=== PATIENT | male | born 1930 | race Caucasian/White ===

== ENCOUNTER 2017-03-11 08:22 | Day surgery (SDC) | payer MEDICARE, BC ==
[~2017-03-11 08:22] MED LIST: Lactated Ringers 1,000 ML IV SCH; Lidocaine 1% 4 ML ONE; Lidocaine 1%/Sod Bicarbonate in NS 8.4% 1 ML Syringe IV PRN; Propofol 200 MG/20 ML SDV ONE; Sodium Chloride 0.9% 10 ML Syringe FLUSH PRN
--- NOTE | 2017-03-11 08:58 | PCM.PREANE ---
Preanesthetic Assessment - Procedure Proposed Procedure: Colonscopy - Anesthesia/Transfusion/Family Hx Anesthesia History: Prior Anesthesia Without Reaction Family History of Anesthesia Reaction: No Transfusion History: No Prior Transfusion(s) - Review of Systems General: No Symptoms Pulmonary: Shortness of Breath Cardiovascular: No Symptoms (pacemaker w/o defibrillator ) Gastrointestinal: No symptoms Neurological: No Symptoms Other: Reports: None - Physical Assessment NPO Status Date: 03/10/17 NPO Status Time: 19:00 Pulse: 67 O2 Sat by Pulse Oximetry: 96 Respiratory Rate: 16 Blood Pressure: 136/84 Temperature: 36.4 C Height: 1.73 m Weight: 107.048 kg ASA Class: 3 Mental Status: Alert & Oriented x3 Airway Class: Mallampati = 1 Dentition: Reports: Missing Tooth/Teeth (missing teeth bilateral lower teeth ) Thyro-Mental Finger Breadths: 3 Mouth Opening Finger Breadths: 5 ROM/Head Extension: Full Lungs: Clear to auscultation, Normal respiratory effort Cardiovascular: Regular Rate, Regular Rhythm - Allergies Allergies/Adverse Reactions: Allergies Allergy/AdvReac Type Severity Reaction Status Date / Time ALTAGRACIA Inhibitors Allergy Other Verified 03/08/17 11:16 atorvastatin [From Lipitor] Allergy Other Verified 03/08/17 11:13 Sulfa (Sulfonamide Allergy Other Verified 03/08/17 11:15 Antibiotics) - Blood Blood Available: No - Anesthesia Plan Beta Robert: Metoprolol Med Last Dose Date: 03/10/17 Med Last Dose Time: 18:30 - Acknowledgements Anesthesia Type Planned: MAC Pt an Appropriate Candidate for the Planned Anesthesia: Yes Alternatives and Risks of Anesthesia Discussed w Pt/Guardian: Yes Pt/Guardian Understands and Agrees with Anesthesia Plan: Yes PreAnesthesia Questionnaire Cardiovascular History: Reports: High Cholesterol, Hypertension, Pacemaker, Other (See Below) Other Cardiovascular History: CHF, CAD, DVT, ischemic cardiomyopathy, valvular disease, CABG Respiratory History: Reports: SOB, Other (See Below) Other Respiratory History: CROUCH, PE Genitourinary History: Reports: Chronic Renal Insuffiency Musculoskeletal History: Reports: Other (See Below) Other Musculoskeletal History: degenerative joint disease, left shoulder impingement Neurological History: Reports: None Other Neuro History: cerebral vascular disease Endocrine/Metabolic History: Reports: Diabetes, Type II (history of elevated Blood sugars) Oncologic (Cancer) History: Reports: Prostate Dermatologic History: Reports: Eczema, Other (See Below) Other Dermatologic History: actinic keratosis, skin lesions - Past Surgical History HEENT Surgical History: Reports: Cataract Surgery Other HEENT Surgeries/Procedures: [place] RESERVATION, tinnitus - SUBSTANCE USE Smoking Status *Q: Former Smoker Days Per Week of Alcohol Use: 2 Number of Drinks Per Day: 2 Total Drinks Per Week: 4 Recreational Drug Use History: No - HOME MEDS Home Medications: Home Meds Fluticasone Furoate [Flonase Sensimist] 03/08/17 [History] Furosemide [Furosemide] 40 mg PO BID 03/08/17 [History] Loratadine [Claritin] 10 mg PO DAILY 03/08/17 [History] Losartan [Cozaar] 25 mg PO DAILY 03/08/17 [History] Metoprolol Tartrate [Lopressor] 25 mg PO DAILY 03/08/17 [History] Pravastatin Sodium [Pravastatin (Pravachol)] 40 mg PO DAILY 03/08/17 [History] Ranitidine [Zantac] 150 mg PO DAILY 03/08/17 [History] Tamsulosin [Flomax] 0.4 mg PO DAILY 03/08/17 [History] Vit B12/Pyridoxine/Thiamine [Apatate] 03/08/17 [History] Warfarin [Coumadin] 7.5 mg PO DAILY 03/08/17 [History] - CURRENT (IN HOUSE) MEDS Current Meds: Current Medications Lactated Ringer's (Ringers, Lactated) 1,000 mls @ 125 mls/hr IV ASDIRECTED NAM Stop: 03/11/17 23:59 Lidocaine/Sodium Bicarbonate (Buffered Lidocaine 1% In Ns 8.4%) 0.25 ml IV ONETIME PRN PRN Reason: Prior to IV Start Stop: 03/11/17 23:59 Sodium Chloride (Saline Flush) 10 ml FLUSH ASDIRECTED PRN PRN Reason: Keep Vein Open Stop: 03/11/17 23:59 Discontinued Medications Lidocaine HCl (Xylocaine-Mpf 1%) Confirm Administered Dose 4 mls @ as directed .ROUTE .STK-MED ONE Stop: 03/11/17 08:17 Propofol (Diprivan 20 Ml) Confirm Administered Dose 200 mg .ROUTE .STK-MED ONE Stop: 03/11/17 08:16
[2017-03-11] MEDS ORDERED: Ketamine 500 mg/10 ML MDV ONE (09:51)
--- NOTE | 2017-03-11 09:53 | PCM.OPNOTE ---
- General Post-Op/Procedure Note Date of Surgery/Procedure: 03/11/17 Operative Procedure(s): colonoscopy Findings: poor prep Pre Op Diagnosis: rectal bleeding Post-Op Diagnosis: Same Primary Surgeon: Harshad Rudolph EBL in mLs: 0 Complications: None Condition: Good
[2017-03-11 10:01] VITALS: BP 153/74
--- NOTE | 2017-03-11 10:06 | PCM48HPAN ---
Post Anesthesia Note - EVALUATION WITHIN 48HRS OF ANESTHETIC Vital Signs in Normal Range: Yes Patient Participated in Evaluation: Yes Respiratory Function Stable: Yes Airway Patent: Yes Cardiovascular Function Stable: Yes Hydration Status Stable: Yes Pain Control Satisfactory: Yes Nausea and Vomiting Control Satisfactory: Yes Mental Status Recovered: Yes
--- NOTE | 2017-03-12 09:49 | OR ---
DATE OF OPERATION: 03/11/2017 SURGEON: Harshad Rudolph MD PREOPERATIVE DIAGNOSIS: Rectal bleeding. POSTOPERATIVE DIAGNOSIS: Rectal bleeding. OPERATION PERFORMED: Colonoscopy to the rectum. FINDINGS: Incomplete prep. The scope was actually advanced beyond the rectum and transverse colon and there is stool throughout the colon. The patient did not take the prep. PLAN: Plan is to cancel the procedure and bring the patient back to the clinic. ANESTHESIA: ESTIMATED BLOOD LOSS: DESCRIPTION OF PROCEDURE: MMODAL /[id number]
== END 2017-03-11 10:40 | disposition home or self-care (01) ==
LOC: JD.SDS 08:22
PROVIDERS: ATTEND Surgery
DX: K62.5 Hemorrhage of anus and rectum (principal); I25.10 Atherosclerotic heart disease of native coronary artery without angina pectoris; I11.0 Hypertensive heart disease with heart failure; I50.9 Heart failure, unspecified; E78.00 Pure hypercholesterolemia, unspecified; I25.5 Ischemic cardiomyopathy; E11.9 Type 2 diabetes mellitus without complications; Z53.8 Procedure and treatment not carried out for other reasons; Z95.1 Presence of aortocoronary bypass graft; Z87.891 Personal history of nicotine dependence; Z79.01 Long term (current) use of anticoagulants; Z79.899 Other long term (current) drug therapy; Z98.890 Other specified postprocedural states
CPT/HCPCS: 36415; 45378; 85610; J7120; 00810; J2704

== ENCOUNTER 2017-04-01 07:47 | Day surgery (SDC) | payer MEDICARE, BC ==
[~2017-04-01 07:47] MED LIST changes: -Lidocaine 1% 4 ML ONE; -Propofol 200 MG/20 ML SDV ONE
--- NOTE | 2017-04-01 08:08 | PCM.PREANE ---
Preanesthetic Assessment - Anesthesia/Transfusion/Family Hx Anesthesia History: Prior Anesthesia Without Reaction Family History of Anesthesia Reaction: No Transfusion History: No Prior Transfusion(s) - Review of Systems General: No Symptoms Pulmonary: Shortness of Breath (had bypass and is usual) Cardiovascular: No Symptoms Gastrointestinal: No symptoms Neurological: No Symptoms Other: Reports: Easy Bruising - Physical Assessment NPO Status Date: 03/31/17 NPO Status Time: 19:00 Pulse: 74 O2 Sat by Pulse Oximetry: 94 Respiratory Rate: 16 Blood Pressure: 120/68 Temperature: 97.2 F Height: 5 ft 8 in Weight: 107.048 kg ASA Class: 3 Mental Status: Alert & Oriented x3 Airway Class: Mallampati = 1 Dentition: Reports: Normal Dentition Thyro-Mental Finger Breadths: 3 Mouth Opening Finger Breadths: 3 ROM/Head Extension: Full Lungs: Clear to auscultation, Normal respiratory effort Cardiovascular: Regular Rate, Regular Rhythm - Lab Values: EF 25-30 from 2013- ischemic cardiomyopathy - Imaging/EKG Impressions: labs- 03/14/17 BUN 16 Cr 1.2 lytes WNL 04/01/17 PT 11.4 INR 1.04 - Allergies Allergies/Adverse Reactions: Allergies Allergy/AdvReac Type Severity Reaction Status Date / Time ALTAGRACIA Inhibitors Allergy Other Verified 03/08/17 11:16 atorvastatin [From Lipitor] Allergy Other Verified 03/08/17 11:13 Sulfa (Sulfonamide Allergy Other Verified 03/08/17 11:15 Antibiotics) - Blood Blood Available: No - Anesthesia Plan Beta Robert: Metoprolol Med Last Dose Date: 03/31/17 Med Last Dose Time: 20:00 - Acknowledgements Anesthesia Type Planned: MAC Pt an Appropriate Candidate for the Planned Anesthesia: Yes Alternatives and Risks of Anesthesia Discussed w Pt/Guardian: Yes Pt/Guardian Understands and Agrees with Anesthesia Plan: Yes PreAnesthesia Questionnaire Cardiovascular History: Reports: High Cholesterol, Hypertension, Pacemaker, Other (See Below) Other Cardiovascular History: CHF, CAD, DVT, ischemic cardiomyopathy, valvular disease, CABG Respiratory History: Reports: SOB, Other (See Below) Other Respiratory History: CROUCH, PE Genitourinary History: Reports: Chronic Renal Insuffiency Musculoskeletal History: Reports: Other (See Below) Other Musculoskeletal History: degenerative joint disease, left shoulder impingement Neurological History: Reports: None Other Neuro History: cerebral vascular disease Endocrine/Metabolic History: Reports: Diabetes, Type II (history of elevated Blood sugars) Oncologic (Cancer) History: Reports: Prostate Dermatologic History: Reports: Eczema, Other (See Below) Other Dermatologic History: actinic keratosis, skin lesions - Past Surgical History HEENT Surgical History: Reports: Cataract Surgery Other HEENT Surgeries/Procedures: GRAYLING, tinnitus Cardiovascular Surgical History: Reports: Coronary Artery Bypass, Pacer - SUBSTANCE USE Smoking Status *Q: Former Smoker Tobacco Use Within Last Twelve Months: No Second Hand Smoke Exposure: No Days Per Week of Alcohol Use: 2 Number of Drinks Per Day: 2 Total Drinks Per Week: 4 Recreational Drug Use History: No - HOME MEDS Home Medications: Home Meds Fluticasone Furoate [Flonase Sensimist] 1 spray NASBOTH DAILY 03/08/17 [History] Furosemide [Furosemide] 40 mg PO BID 03/08/17 [History] Loratadine [Claritin] 10 mg PO DAILY 03/08/17 [History] Losartan [Cozaar] 25 mg PO DAILY 03/08/17 [History] Metoprolol Tartrate [Lopressor] 25 mg PO DAILY 03/08/17 [History] Pravastatin Sodium [Pravastatin (Pravachol)] 40 mg PO DAILY 03/08/17 [History] Ranitidine [Zantac] 150 mg PO DAILY 03/08/17 [History] Tamsulosin [Flomax] 0.4 mg PO DAILY 03/08/17 [History] Vit B12/Pyridoxine/Thiamine [Apatate] 120 ml PO DAILY 03/08/17 [History] Warfarin [Coumadin] 7.5 mg PO DAILY 03/08/17 [History] - CURRENT (IN HOUSE) MEDS Current Meds: Current Medications Lactated Ringer's (Ringers, Lactated) 1,000 mls @ 125 mls/hr IV ASDIRECTED NAM Stop: 04/01/17 23:00 Lidocaine/Sodium Bicarbonate (Buffered Lidocaine 1% In Ns 8.4%) 0.25 ml IV ONETIME PRN PRN Reason: Prior to IV Start Stop: 04/01/17 18:00 Sodium Chloride (Saline Flush) 10 ml FLUSH ASDIRECTED PRN PRN Reason: Keep Vein Open Stop: 04/01/17 18:00
[2017-04-01] MEDS ORDERED: Lidocaine 1% 4 ML ONE (08:30)
[2017-04-01] MEDS ORDERED: Propofol 200 MG/20 ML SDV ONE (08:30)
--- NOTE | 2017-04-01 09:17 | PCM.OPNOTE ---
- General Post-Op/Procedure Note Date of Surgery/Procedure: 04/01/17 Operative Procedure(s): colonoscopy to cecum with bx Findings: radiation proctitis diverticulosis sigmoid Pre Op Diagnosis: rectal bleeding Post-Op Diagnosis: rectal bleeding Anesthesia Technique: MAC Primary Surgeon: Harshad Rudolph EBL in mLs: 0 Complications: None Condition: Good
[2017-04-01 09:20] VITALS: BP 120/54
--- NOTE | 2017-04-01 13:55 | OR ---
DATE OF OPERATION: 04/01/2017 SURGEON: Harshad Rudolph MD PREOPERATIVE DIAGNOSIS: Rectal bleeding. POSTOPERATIVE DIAGNOSIS: Rectal bleeding. OPERATION PERFORMED: Colonoscopy to cecum with biopsy. 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 There are no angiodysplasias, neoplasias, large tumor masses, ulcerations, or notable hemorrhoids. ANESTHESIA: Procedure done under IV sedation. DESCRIPTION OF PROCEDURE: The patient was taken to the endoscopy room, placed in a supine position, connected to monitoring equipment, given IV sedation, and placed in left lateral position. The perianal area was inspected and was normal. Rectal exam showed good sphincter tone. A video Olympus colonoscope was introduced into the rectum and threaded up without problem to the cecum, where the cecal anatomy was clearly seen, showing the appendicular orifice, ileocecal valve. The prep was good throughout the colon. [place] Cleansing Score grade B. There were some, around the sigmoid area, particulate matter present, which could not be completely aspirated. The scope was then slowly withdrawn showing the cecum, ascending colon, transverse colon, descending colon, sigmoid colon, and rectum. Retroflex view was done. 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 The patient tolerated the procedure and was sent to recovery room in a stable condition. He will be followed up with Dr. Jigna Deras. ESTIMATED BLOOD LOSS: MMODAL /[id number]
== END 2017-04-01 09:55 | disposition home or self-care (01) ==
LOC: JD.SDS 07:47
PROVIDERS: ATTEND Surgery
PROC: 0DBP8ZX Excision of Rectum, Via Natural or Artificial Opening Endoscopic, Diagnostic (ICD-10-PCS; principal; 2017-04-01)
DX: D12.8 Benign neoplasm of rectum (principal); K57.30 Diverticulosis of large intestine without perforation or abscess without bleeding; K62.7 Radiation proctitis; I50.9 Heart failure, unspecified; I13.0 Hypertensive heart and chronic kidney disease with heart failure and stage 1 through stage 4 chronic kidney disease, or unspecified chronic kidney disease; N18.9 Chronic kidney disease, unspecified; I25.10 Atherosclerotic heart disease of native coronary artery without angina pectoris; E78.2 Mixed hyperlipidemia; I25.5 Ischemic cardiomyopathy; M19.90 Unspecified osteoarthritis, unspecified site; Z85.46 Personal history of malignant neoplasm of prostate; Z92.3 Personal history of irradiation; Z86.73 Personal history of transient ischemic attack (TIA), and cerebral infarction without residual deficits; Z86.718 Personal history of other venous thrombosis and embolism; Z86.711 Personal history of pulmonary embolism; Z87.891 Personal history of nicotine dependence; Z98.41 Cataract extraction status, right eye; Z98.42 Cataract extraction status, left eye; Z95.0 Presence of cardiac pacemaker; Z95.1 Presence of aortocoronary bypass graft; Z98.890 Other specified postprocedural states; Z79.01 Long term (current) use of anticoagulants; Z79.82 Long term (current) use of aspirin; Z79.899 Other long term (current) drug therapy; Z88.2 Allergy status to sulfonamides; Z88.8 Allergy status to other drugs, medicaments and biological substances
CPT/HCPCS: 36415; 45380; 85610; 88305; J7120; J2704